=== PATIENT | female | born 1955 | race Caucasian/White ===

== ENCOUNTER 2018-03-19 21:27 | Emergency (ER) | payer BC ==
[~2018-03-19] VITALS: Ht 160 cm; Wt 74.8 kg
[2018-03-19] MEDS ORDERED: TOPROL XL25 MG PO (21:45)
[2018-03-19 23:14] VITALS: BP 150/80
== END 2018-03-19 23:15 | disposition home or self-care (01) ==
LOC: ER 21:27
DX: Z46.89 Encounter for fitting and adjustment of other specified devices (principal)